=== PATIENT | male | born 1995 | race Caucasian/White ===

== ENCOUNTER 2023-01-08 08:50 | Emergency (ER) | payer OTHER, SELFPAY ==
[2023-01-08 08:52] VITALS: BP 165/101; PULSE 84; RESP 16; TEMP 36.3; O2SAT 100; BMI 30.4
[2023-01-08 08:56] VITALS: BP 137/81; PULSE 62; RESP 16; TEMP 37; O2SAT 100; BMI 32.4
--- NOTE | 2023-01-08 09:14 | EX.ED.GENINJ ---
HPI History of Present Illness Chief Complaint: Laceration Detail of Chief Complaint: Lip laceration Informant: patient Narrative Narrative: Patient presents to the emergency department with complaint of injury and laceration to his lower lip. Patient states that he was working on a lawnmower when the back part of the more chronic came back and struck him on the head and pinched his lip against a bar. Patient thinks his last tetanus was in 2017. He denies loss of consciousness. He denies neck injury. Patient states that he has a small chip in his upper front teeth. PFSH PFSH Medical History no medical history Home Medications amoxicillin 875 mg-potassium clavulanate 125 mg tablet 1 tab PO BID #14 tabs 01/08/23 [Rx Last Taken Unknown] Allergy/AdvReac Type Severity Reaction Status Date / Time No Known Allergies Allergy Verified 01/08/23 09:00 Surgical History (Updated 01/08/23 @ 09:03 by Sandy Griffin) History of tonsillectomy Social History Smoking Status: Never smoker ROS ROS ED Review of Systems ROS Unobtainable: other Constitutional Constitutional ED: Reports lethargy; Denies chills, fever(s), sweats or weight loss Eyes Eyes: Denies blurry vision, change in vision or diplopia ENT ENT ED: Reports other Details: Lip laceration, chipped teeth ; Denies rhinorrhea or sore throat Cardiovascular Cardiovascular: Reports chest pain and racing heartbeat; Denies orthopnea Respiratory/Chest Respiratory/Chest: Denies cough, dyspnea, dyspnea on exertion, orthopnea or sputum Gastrointestinal Gastrointestinal: Denies abdominal pain, diarrhea, nausea or vomiting Genitourinary Genitourinary ED: Denies dysuria, hematuria or urinary frequency Musculoskeletal Musculoskeletal: Denies arthralgias, back pain, myalgias or neck pain Integumentary Denies abscess, Abrasions or rash Neurologic Neurologic: Denies headache(s) or weakness Psychiatric Psychiatric: Denies anxiety, depression or suicidal thoughts Endocrine Endocrinology: Denies polydipsia, polyphagia or polyuria Hematologic/Lymphatic Hematologic/Lymphatic: Denies easy bleeding, easy bruising or lymphadenopathy Allergic/Immunologic Allergic/Immunologic ED: Denies mouth swelling, tongue swelling or urticaria EXAM Physical Exam Const Vital Signs: 01/08/23 08:52 01/08/23 08:56 Temperature 97.3 F L 98.6 F Temperature Source Temporal Temporal Pulse Rate 84 62 Respiratory Rate 16 16 Blood Pressure 165/101 H 137/81 H Blood Pressure Mean 122 99 Pulse Ox 100 100 Oxygen Delivery Method Room Air Room Air Positive well nourished and well developed General Appearance ED: well developed and NAD HEENT Reports TM's clear and moist mucous membranes HEENT Narrative: Patient has a full-thickness lower lip laceration that is a large flap measuring approximately 8 cm in total length involving the mucosal surface and dermal surface through the vermilion border. Patient has minimal chip in the upper incisors with no significant fractures noted. Midface stable. normocephalic and atraumatic; Negative for trauma or tenderness Tympanic Membrane ED: Yes TM's clear Eyes PERRL and EOMs intact bilaterally General Eye ED: Negative for pale conjunctiva or scleral icterus Neck no lymphadenopathy, supple and no JVD General: Negative for tenderness Chest Wall inspection of chest normal and palpation of chest normal Chest: Negative for tenderness Resp normal respiratory effort and clear to auscultation bilaterally Effort and Inspection: Negative for respiratory distress or pain with movement Auscultation: Negative for rhonchi, wheezes or diminished lung sounds Cardio regular rate, regular rhythm, S1 normal heart sound, S2 normal heart sound and no murmurs Peripheral Pulses: pulses 2+ throughout GI normal to inspection, nondistended, normoactive bowel sounds, soft to palpation, non-tender, non-distended and no masses Back/Spine no CVA tenderness and no thoracic nor lumbar tenderness Extremity normal to inspection General Extremety ED: Negative for edema General Extremity: Negative for edema Neuro oriented x3, CN's II-XII intact bilaterally, no sensory deficits noted and gait normal Sensorium / Orientation: awake, alert, oriented to person, oriented to place and oriented to time Motor Exam: strength 5/5 throughout and strength abnormal Psych mental status grossly normal Skin no rashes or lesions noted and no wounds PROC Procedures Lacerations Lower lip laceration: Length: 3.15 in Depth: Sub Q Shape: Flap Prep: Sterile Conditions and Shure-Clens Laceration repair: Irrigated, Lidocaine, Local and Skin sutures Irrigated (ml): 100 Number of Sutures/Mini: 14 Suture Information: Vicryl, Ethilon, Simple, 5-0 and 6-0 MDM MDM MDM Narrative Medical decision making narrative: Patient presents with a large complex lower lip laceration that is through and through. Minimal dental avulsions of the upper incisors. I do not feel any type of imaging is indicated. Please see laceration repair note. Patient tolerated well. Will start on Keflex. Patient will be referred to [facility] for follow-up. Patient advised return if increasing pain, redness, swelling, purulent drainage, or condition should worsen anyway. Discharge Plan Triage Chief Complaint: Laceration ED Provider: Shanti Bowman Dx/Rx/DC Orders Clinical Impression: Laceration of lip, Fracture of tooth Instructions: ED Dental Trauma Prescriptions: New amoxicillin-pot clavulanate 875-125 mg tablet 1 tab PO BID Qty: 14 0RF Primary Care Provider: Chevy Yu Referrals: [facility] [Group of Physicians] - 5-7 Days Benjamin Arana MD [Med Staff - Active Staff] - 7 Days for suture removal Disposition Disposition: Home, Self Care Discharge Date/Time: 01/08/23 10:39
[2023-01-08] MEDS: Diphth,Pertuss(Acell),Tet Vac 0.5 ML Vial IM (10:09)
[2023-01-08] MEDS: Lidocaine 1% (20 ml mdv) 20 ML Vial 8 ML INFILT (10:09)
[2023-01-08 10:17] VITALS: BP 124/84
== END 2023-01-08 10:39 | disposition home or self-care (01) ==
LOC: ED 10:33
PROVIDERS: Emergency Provider Emergency Medicine; PCP Family Medicine; Visit Provider Emergency Medicine
DX: S01.511A Laceration without foreign body of lip, initial encounter (principal); S02.5XXA Fracture of tooth (traumatic), initial encounter for closed fracture; W23.2XXA Caught, crushed, jammed or pinched between a moving and stationary object, initial encounter; Y93.89 Activity, other specified; Z23 Encounter for immunization
CPT/HCPCS: 12015; 90471; 99283